=== PATIENT | female | born 1985 | race Two or more races ===

== ENCOUNTER 2022-03-11 00:14 | Emergency (ER) | payer OTHER ==
[~2022-03-11] VITALS: Ht 157.5 cm; Wt 66.2 kg
[2022-03-11] MEDS ORDERED: SYNTHROID75 MCG PO (00:31)
[2022-03-11] MEDS ORDERED: MEDROLPACK PO (05:46)
== END 2022-03-11 06:03 | disposition home or self-care (01) ==
LOC: ER 00:14
DX: R13.10 Dysphagia, unspecified (principal); M54.2 Cervicalgia; Z88.8 Allergy status to other drugs, medicaments and biological substances

== ENCOUNTER 2022-05-07 06:55 | Day surgery (SDC) | payer OTHER ==
[~2022-05-07 06:55] MED LIST: MEDROLPACK PO; SYNTHROID75 MCG PO
[2022-05-07] MEDS ORDERED: PERCOCET 5-3251 EACH PO (11:24)
[2022-05-07] MEDS ORDERED: DICY20TA PO (21:50)
[2022-05-07] MEDS ORDERED: PEPCID AC20 MG PO (21:50)
[2022-05-08] MEDS ORDERED: PERCOCET 10-321 EACH (13:53)
== END 2022-05-07 14:45 | disposition home or self-care (01) ==
LOC: CIR.AMB 06:55
PROVIDERS: ATTEND Surgery
DX: C73 Malignant neoplasm of thyroid gland (principal); E03.9 Hypothyroidism, unspecified; Z20.822 Contact with and (suspected) exposure to COVID-19; Z88.0 Allergy status to penicillin

== ENCOUNTER 2022-05-07 19:33 | Emergency (ER) | payer OTHER ==
[~2022-05-07] VITALS: Ht 157.5 cm; Wt 68.9 kg
[~2022-05-07 19:33] MED LIST changes: +PERCOCET 5-3251 EACH PO
[2022-05-07] MEDS ORDERED: DICY20TA PO (21:50)
[2022-05-07] MEDS ORDERED: PEPCID AC20 MG PO (21:50)
[2022-05-08] MEDS ORDERED: PERCOCET 10-321 EACH (13:53)
== END 2022-05-07 22:04 | disposition home or self-care (01) ==
LOC: ER 19:33
DX: K21.9 Gastro-esophageal reflux disease without esophagitis (principal); R07.0 Pain in throat; R13.19 Other dysphagia; E89.0 Postprocedural hypothyroidism; Z88.8 Allergy status to other drugs, medicaments and biological substances

== ENCOUNTER 2022-05-08 13:03 | Emergency (ER) | payer OTHER ==
[~2022-05-08] VITALS: Ht 157.5 cm; Wt 68.9 kg
[~2022-05-08 13:03] MED LIST changes: +DICY20TA PO; +PEPCID AC20 MG PO
[2022-05-08] MEDS ORDERED: PERCOCET 10-321 EACH (13:53)
== END 2022-05-08 16:20 | disposition home or self-care (01) ==
LOC: ER 13:03
DX: E89.0 Postprocedural hypothyroidism (principal); R07.0 Pain in throat; Z88.0 Allergy status to penicillin; Z88.2 Allergy status to sulfonamides

== ENCOUNTER 2022-05-24 06:14 | Emergency (ER) | payer OTHER ==
[~2022-05-24] VITALS: Ht 157.5 cm; Wt 68.0 kg
[~2022-05-24 06:14] MED LIST changes: +PERCOCET 10-321 EACH
[2022-05-24] MEDS ORDERED: LEVSIN/SL0.125 MG SL (10:39)
[2022-05-24] MEDS ORDERED: PROTONIX40 MG PO (10:39)
[2022-05-24] MEDS ORDERED: ZITHROMAX200 MG PO (10:39)
== END 2022-05-24 10:47 | disposition home or self-care (01) ==
LOC: ER 06:14
DX: R12 Heartburn (principal); J02.9 Acute pharyngitis, unspecified; Z20.828 Contact with and (suspected) exposure to other viral communicable diseases